=== PATIENT | male | born 1985 | race Caucasian/White ===

== ENCOUNTER 2018-10-28 11:23 | Emergency (ER) | payer SELFPAY ==
--- NOTE | 2018-10-28 11:39 | EKG12_ITS ---
Test Reason : Blood Pressure : / mmHG Vent. Rate : 055 BPM Atrial Rate : 192 BPM P-R Int : 000 ms QRS Dur : 156 ms QT Int : 414 ms P-R-T Axes : 269 050 041 degrees QTc Int : 396 ms Atrial flutter with variable A-V block with premature ventricular or aberrantly conducted complexes Right bundle branch block Inferior infarct , age undetermined Anterior injury pattern Abnormal ECG Confirmed by ROSE MARIE MAX, SITA ([id number]), field map editor MER GARAY ([id number]) on 10/29/2018 2:42:11 PM Referred By: Halima Doty Confirmed By:SITA TROTTER MD
--- NOTE | 2018-10-28 12:00 | CM.ED ---
SOCIAL WORK NOTE 11:52A- PT'S FATHER, TO DEPARTMENT AND ESCORTED TO PT'S ROOM. EMOTIONAL SUPPORT PROVIDED. THIS WORKER RESPONDED TO CODE BLUE AT 11:23A. NO FAMILY PRESENT AT THIS TIME.
[2018-10-28 12:01] LABS: Absolute Lymphocyte Count 4.92 X10^3/ul (0.83-4.51); Absolute Neutrophil Count 8.2 X10^3/uL (2.0-7.7); Basophil# 0.05 X10^3/uL; Basophil% 0.3 % (0-1); Eosinophil# 0.32 X10^3/uL; Eosinophils% 2.2 % (0-5); Hematocrit 48.8 % (40-54); Hemoglobin 14.8 g/dl (13.0-16.5); Lymphocyte # 4.92 X10^3/ul (4.0); Lymphocyte % 33.7 % (19-41); Mean Corp Hgb Conc 30.3 g/gl (32-36); Mean Corpuscular Volume 98.8 fL (80-94); Mean Platelet Vol. 9.9 fl (6.2-12.0); Monocyte# 1.06 X10^3/uL; Monocyte% 7.3 % (0-10); Neutrophil # 8.17 X10^3/uL (2.7-7.7); POSITIVE COUNT NO; POSITIVE DIFFERENTIAL NO; POSITIVE MORPHOLOGY NO; Platelet Count 126 K/mm3 (150-450); RBC Distribution Width CV 13.4 % (11.6-14.6); RBC Distribution Width SD 48.2 fl (35.1-43.9); Red Blood Count 4.94 M/mm3 (4.6-6.2); White Blood Count 14.6 K/mm3 (4.4-11.0)
[2018-10-28 12:03] LABS: International Normalized Ratio 1.5; Prothrombin Time (Protime)PT. 17.8 SECONDS (11.7-14.9)
[2018-10-28 12:19] LABS: ALB/GLOB Ratio 1.1 RATIO (0.9-2.4); AST(SGOT) 96 U/L (15-37); Alanine Aminotransfer ALT/SGPT 116 U/L (16-61); Albumin, Serum 2.3 g/dL (3.2-5.0); Alkaline Phosphatase 82 U/L (45-117); Anion Gap 16 (5-15); BUN 12 mg/dL (7-18); BUN/Creat Ratio 9.2 RATIO (10-20); Calcium,Total 6.2 mg/dL (8.5-10.1); Chloride 118 mmol/L (98-107); EST Glomerular Filtration Rate 68 mL/min (>60); Est Glom Filt Rate - Afr Amer 83 mL/min (>60); Globulin 2.1 g/dL (2.2-4.2); Glucose 250 mg/dL (74-106); Lactic Acid 11.9 mmol/L (0.4-2.0); Potassium 2.5 mmol/L (3.5-5.1); Protein, Total 4.4 g/dL (6.4-8.2); Sodium Level 156 mmol/L (136-145)
--- NOTE | 2018-10-28 13:20 | CM.ED ---
SOCIAL WORK NOTE THIS WORKER CONTINUED TO PROVIDE SUPPORT TO FAMILY AND FRIENDS IN TRAINING PROGRAM DEVELOPER WAITING AREA. ROXANNE RODRIGUES, DYE HOUSE SUPERVISOR, DRAFTER COMMERCIAL.
--- NOTE | 2018-10-28 13:25 | CM.ED ---
SOCIAL WORK NOTE DOCTOR'S UPDATED FAMILY. PT . MUCH EMOTIONAL SUPPORT PROVIDED. ROXANNE RODRIGUES, SUPERVISOR BRAKE REPAIR, VISITING TEACHER.
--- NOTE | 2018-10-28 14:03 | ED.RN ---
PT BROUGHT IN BY SERGEY LORENZO/ RESPIRATORY ARREST - CPR IN PROGRESS
--- NOTE | 2018-10-28 14:20 | CM.ED ---
SOCIAL WORK NOTE PT'S MOTHER GIVEN PT'S BELT.
--- NOTE | 2018-10-28 14:48 | CL.D_ITS ---
Patient Name: JAVIER CEDEÑO Study Date: 10/28/2018 Performing: Jayson Doty MD Ht: inches cm : 1985 Wt: lbs kg Age: 33 Gender: male BSA: PROCEDURE(S) PERFORMED [id number]/LHC/COR [id number] INTRAVENTRICULAR PACING [id number] PULMONARY ANGIOGRAM CLINICAL PROFILE AND INDICATIONS Indications: Cardiac Arrythmia, Suspected CAD, Resuscitated Cardiac Arrest Heart Failure: NYHA Class: 4, Newly Diagnosed: Yes, Heart Failure Type: Systolic Stress/Imaging Stress/Image Study Performed: No CAD Presentations: Other: acute shortness of breath; cardiopulmonary arrest. CONCLUSIONS Normal coronary arteries Pulmonary embolism Pulmonary filling defects Emergent left and right heart catheterization were performed with CPR in progress with mechanical CPR device in place. Patient required multiple shocks during the procedure, and was intubated in the ER . Initial attempts at transvenous pacing were successful with electrical capture, but no mechanical capture was noted. Emergent left heart catheterization demonstrated smooth coronary arteries and no coronary occlusive disease. Emergent right heart catheterization and right central pulmonary angiogr am demonstrated what appeared to be severe bilateral pulmonary emboli. Patient had emergent TPA deli ashley through the central tip of the [place] catheter. Repeat pulmonary angiogram demonstrated min imal if any improvement of vascular patency. Patient continued to require CPR throughout the entire case either mechanically or with physical personnel. The patient received multiple shocks throughout the entire case. Patient was coded for approximately 2 hours time, and multiple rounds of epinephrine, bicarb, calcium , and glucose were given. In addition the patient had wide open pressor agents delivered through a c entral venous catheter with no improvement. At the end of the procedure the patient had a coarse clover tricular fibrillation and the aerobic code efforts were terminated at the above time. RECOMMENDATIONS Patient's CPR and CODE BLUE were terminated at the above time. Patient will be transferred back to [facility] emergency room to be evaluated by the [facility] local biomedical specialist to determine if autopsy is ind icated. DESCRIPTION OF PROCEDURE The patient arrived to the procedure lab. The risks and benefits of the procedure as well as a full d escription of our services here and current unavailability of surgical backup were fully explained to the patient and/or their significant other prior to the catheterization. The Timeout was completed, verifying the correct patient and procedure. The patient's procedural site was prepped and draped in the usual fashion. . Using a modified Seldinger technique, arterial access was obtained via the right femoral artery, a 6Fr sheath was inserted. Venous access was obtained via the right femoral vein, a 7Fr sheath was inserted. Left Coronary Artery selective angiography was performed in multiple views u sing a 4 Fr. JL5 catheter. Right Coronary Artery selective angiography was then performed in multiple views using a 4 Fr. 3DRC catheter.Temporary Pacemaker was inserted into the right femoral vein and a dvanced to the RV apex, settings were placed at a rate of , 60 mA , demand mode, Other Findings: Attempted emergent temporary pacemaker with capture but no contractile pressure noted. CORONARY ANGIOGRAPHY DOMINANCE: Right Dominant LEFT HEART ASSESSMENT Left Ventricular Ejection Fraction: Not assessed Pulmonary Embolus, massive bilateral on pulmonary angiogram. Attempted emergent temporary pacemaker with capture but no contractile pressure noted. LEFT MAIN: Angiographically normal LEFT ANTERIOR DECENDING ARTERY: Angiographically normal CIRCUMFLEX ARTERY: Angiographically normal RIGHT CORONARY ARTERY: Angiographically normal COMPLICATIONS No Complications PROCEDURE MEDICATIONS Oxygen: 10 L/min via Ambu-bag Amiodarone 600 mg/min 10/28/2018 12:48:02 Amiodarone 33.3 mg/min @ 10/28/2018 12:57:02 Epinephrine 1mg/10ml infusing wide open 10/28/2018 13:08:08 Heparin 6000 unit(s) IV 10/28/2018 13:11:35 SUMMARY OF HEMODYNAMIC DATA Time AIR REST ECG 12:37:45 AO 56/12 (24) SA 12:48:48 AO 108/5 (33) 12:55:57 AO 35/0 (20) 13:15:13 AO 14/0 (13) 13:16:21 Signed By Jayson Doty MD On 10/28/2018 2:47:30 PM Jayson Doty MD
--- NOTE | 2018-10-28 14:54 | CM.ED ---
SOCIAL WORK NOTE FAMILY AND FRIENDS HAVE LEFT AT THIS TIME. NURSING UPDATED. ROXANNE RODRIGUES, WIRE BOUND BOX MACHINE HELPER, TRAILER MECHANIC.
--- NOTE | 2018-10-28 14:57 | PCM.CONS.C ---
Reason for Consult Date of Consultation: 10/28/18 Reason for Consultation: Cardiopulmonary arrest History of Present Illness: The patient is a 33 year old M who was brought in by EMS after he apparently passed out at home. Most of this history was obtained after his full evaluation and procedures performed. His initial EKG when he was found by EMS was actually a sinus tachycardia. He was markedly short of breath and then he became bradycardic and went into a cardiac arrest. CPR was initiated and I was called to the emergency room. At that time he was noted to be in atrial flutter with a slow ventricular response rate and a right bundle branch block patent. He was treated aggressively per ACLS protocol with intravenous epinephrine, appropriate CPR, temporary pacemaker transthoracic augmentation, intravenous amiodarone. He also had periods of ventricular fibrillation for which he needed to be defibrillated 3 times. He was noted to be in pulseless electrical activity for most of the period of the CPR. Consultation with the ER physician as well as the radio board operator was sought and the decision was made to bring him to the cardiac catheterization lab. There was a consideration as to whether this was an acute cardiac event versus a pulmonary embolus. The only history available at that time was that he had had a previous DVT which had not been worked up. (Later history obtained from his parents determined that he had been short of breath for a few days prior to this event) [] Past Medical History Surgical History: no surgical history - *Family History Maternal History Items: No pertinent history Paternal History Items: DVT Lives: Alone Smoking Status: Current some day smoker Alcohol: None Drugs: None Review of Systems - Review of Systems General: Denies: Fever, Night Sweats, Fatigue HEENT: Denies: Vision Change Cardiovascular: Reports: Syncope. Denies: Chest Discomfort, Shortness of Breath, Orthopnea, PND, Peripheral Edema, Palpitations, Lightheadedness, Dizziness, Near Syncope Respiratory: Denies: Cough, Sputum Production, Hemoptysis Gastrointestinal: Denies: Hematemesis, Hematochezia, Melena Genitourinary: Denies: Dysuria, Hematuria Muscoloskeletal: Denies: Myalgias Skin: Denies: Rash Neurological: Denies: Dizziness Psychiatric: Denies: Anxiety Endocrine: Denies: Unexplained Weight Loss Hematologic/ Lymphatic: Denies: Anemia Subjectve: Young man unconscious undergoing cardiopulmonary resuscitation General: - - Unconscious HEENT: PERRL, EOMI, Sclera Non Icteric Oral: Moist Mucosa Neck: Supple, Good ROM, No Lymph Node Enlargement Lungs: Clear to auscultation Cardiovascular: Normal S1, Normal S2, No Murmurs, No Rubs, No Gallops Vascular: No Carotid Bruits, Normal Femoral Pulses, Normal Radial Pulses, Normal Dorsalis Pedal Pulse, Normal Posterior Tibial Pulses Abdomen: Bowel Sounds Present, Soft, Non Tender, No HSM, No Organomegaly Extremities: No Cyanosis, No Clubbing, No edema Skin: No Rashes Lymphatic: No Lymph Node Enlargement Neurological: No Focal Motor or Sensory Deficit 10/28/18 11:45: WBC 14.6 H, RBC 4.94, Hgb 14.8, Hct 48.8, MCV 98.8 H, MCH 30.0, MCHC 30.3 L, RDW 13.4, RDW Differential 48.2 H, Plt Count 126 L, MPV 9.9, Immature Gran % (Auto) 0.500, Neut % (Auto) 56.0, Lymph % (Auto) 33.7, [place] % (Auto) 7.3, Eos % (Auto) 2.2, Baso % (Auto) 0.3, Absolute Neuts (auto) 8.2 H, Total Counted Not Reportable 10/28/18 11:45: PT 17.8 H, INR 1.5 10/28/18 11:45: Sodium 156 H, Potassium 2.5 L*, Chloride 118 H, Carbon Dioxide 22.0, Anion Gap 16 H, BUN 12, Creatinine 1.30, Est GFR (MDRD) Af Amer 83, Est GFR (MDRD) Non-Af 68, BUN/Creatinine Ratio 9.2 L, Glucose 250 H, Calcium 6.2 L*, Total Bilirubin 0.80, Troponin I 0.125 H 10/28/18 11:45: Lactic Acid 11.9 H* Rhythm: EKG: Initial EKG demonstrated sinus tachycardia with a rate of 141 bpm: Follow-up EKG demonstrated atrial flutter with a right bundle branch block and a rate of 55-60 bpm ECHO: Stress Test: Cardiac Cath: PCI: CT Surgery: Holter monitor: EPS: PPM: CXR: Chest CT Scan: Assessment/Plan 1. Cardiopulmonary arrest-massive pulmonary embolism versus acute coronary syndrome The etiology of the time that he was seen was not clear. The considerations were an acute coronary syndrome involving the right coronary artery or a massive pulmonary embolism. Due to the fact that it was felt that he should go to the catheterization lab it was felt that we should hold off on giving him tissue plasminogen activator. This could be administered to him in the catheterization lab. Aggressive CPR measures were continued in the emergency room and also in the catheterization lab including but not limited to multiple rounds of epinephrine , amiodarone, sodium bicarbonate, and multiple liters of intravenous fluid. The patient was taken emergently to the cardiac catheterization lab. The results of the cardiac catheterization and procedures are dictated under separate cover. Emergency consent was obtained verbally from parents and an emergent cardiac catheterization procedure was anticipated and performed. Thank you for allowing me to participate in the care of your patient. Please don't hesitate to call if any issues arise
--- NOTE | 2018-10-28 15:01 | CON.PCM_ITS ---
Reason for Consult Date of Consultation: 10/28/18 Reason for Consultation: Cardiopulmonary arrest History of Present Illness: The patient is a 33 year old M who was brought in by EMS after he apparently passed out at home. Most of this history was obtained after his full evaluation and procedures performed. His initial EKG when he was found by EMS was actually a sinus tachycardia. He was markedly short of breath and then he became bradycardic and went into a cardiac arrest. CPR was initiated and I was called to the emergency room. At that time he was noted to be in atrial flutter with a slow ventricular response rate and a right bundle branch block patent. He was treated aggressively per ACLS protocol with intravenous epinephrine, appropriate CPR, temporary pacemaker transthoracic augmentation, intravenous amiodarone. He also had periods of ventricular fibrillation for which he needed to be defibrillated 3 times. He was noted to be in pulseless electrical activity for most of the period of the CPR. Consultation with the ER physician as well as the soc analyst was sought and the decision was made to bring him to the cardiac catheterization lab. There was a consideration as to whether this was an acute cardiac event versus a pulmonary embolus. The only history available at that time was that he had had a previous DVT which had not been worked up. (Later history obtained from his parents determined that he had been short of breath for a few days prior to this event) [] Past Medical History Surgical History: no surgical history - *Family History Maternal History Items: No pertinent history Paternal History Items: DVT Lives: Alone Smoking Status: Current some day smoker Alcohol: None Drugs: None Review of Systems - Review of Systems General: Denies: Fever, Night Sweats, Fatigue HEENT: Denies: Vision Change Cardiovascular: Reports: Syncope. Denies: Chest Discomfort, Shortness of Breath, Orthopnea, PND, Peripheral Edema, Palpitations, Lightheadedness, Dizziness, Near Syncope Respiratory: Denies: Cough, Sputum Production, Hemoptysis Gastrointestinal: Denies: Hematemesis, Hematochezia, Melena Genitourinary: Denies: Dysuria, Hematuria Muscoloskeletal: Denies: Myalgias Skin: Denies: Rash Neurological: Denies: Dizziness Psychiatric: Denies: Anxiety Endocrine: Denies: Unexplained Weight Loss Hematologic/ Lymphatic: Denies: Anemia Subjectve: Young man unconscious undergoing cardiopulmonary resuscitation General: - - Unconscious HEENT: PERRL, EOMI, Sclera Non Icteric Oral: Moist Mucosa Neck: Supple, Good ROM, No Lymph Node Enlargement Lungs: Clear to auscultation Cardiovascular: Normal S1, Normal S2, No Murmurs, No Rubs, No Gallops Vascular: No Carotid Bruits, Normal Femoral Pulses, Normal Radial Pulses, Normal Dorsalis Pedal Pulse, Normal Posterior Tibial Pulses Abdomen: Bowel Sounds Present, Soft, Non Tender, No HSM, No Organomegaly Extremities: No Cyanosis, No Clubbing, No edema Skin: No Rashes Lymphatic: No Lymph Node Enlargement Neurological: No Focal Motor or Sensory Deficit 10/28/18 11:45: WBC 14.6 H, RBC 4.94, Hgb 14.8, Hct 48.8, MCV 98.8 H, MCH 30.0, MCHC 30.3 L, RDW 13.4, RDW Differential 48.2 H, Plt Count 126 L, MPV 9.9, Immature Gran % (Auto) 0.500, Neut % (Auto) 56.0, Lymph % (Auto) 33.7, [place] % (Auto) 7.3, Eos % (Auto) 2.2, Baso % (Auto) 0.3, Absolute Neuts (auto) 8.2 H, Total Counted Not Reportable 10/28/18 11:45: PT 17.8 H, INR 1.5 10/28/18 11:45: Sodium 156 H, Potassium 2.5 L*, Chloride 118 H, Carbon Dioxide 22.0, Anion Gap 16 H, BUN 12, Creatinine 1.30, Est GFR (MDRD) Af Amer 83, Est GFR (MDRD) Non-Af 68, BUN/Creatinine Ratio 9.2 L, Glucose 250 H, Calcium 6.2 L*, Total Bilirubin 0.80, Troponin I 0.125 H 10/28/18 11:45: Lactic Acid 11.9 H* Rhythm: EKG: Initial EKG demonstrated sinus tachycardia with a rate of 141 bpm: Follow- up EKG demonstrated atrial flutter with a right bundle branch block and a rate of 55-60 bpm ECHO: Stress Test: Cardiac Cath: PCI: CT Surgery: Holter monitor: EPS: PPM: CXR: Chest CT Scan: Assessment/Plan 1. Cardiopulmonary arrest-massive pulmonary embolism versus acute coronary syndrome * The etiology of the time that he was seen was not clear. The considerations were an acute coronary syndrome involving the right coronary artery or a massive pulmonary embolism. Due to the fact that it was felt that he should go to the catheterization lab it was felt that we should hold off on giving him tissue plasminogen activator. This could be administered to him in the catheterization lab. Aggressive CPR measures were continued in the emergency room and also in the catheterization lab including but not limited to multiple rounds of epinephrine , amiodarone, sodium bicarbonate, and multiple liters of intravenous fluid. * The patient was taken emergently to the cardiac catheterization lab. * The results of the cardiac catheterization and procedures are dictated under separate cover. * Emergency consent was obtained verbally from parents and an emergent cardiac catheterization procedure was anticipated and performed. * * Thank you for allowing me to participate in the care of your patient. Please don't hesitate to call if any issues arise
--- NOTE | 2018-10-28 15:38 | ED.RN ---
PATIENT TO THE [facility] AT THIS TIME
[2018-10-28 15:58] LABS: Reflex Lactate? N
--- NOTE | 2018-10-28 16:48 | ED.VISSUMM ---
- ER Visit Summary Date of Service: 10/28/18 Chief Complaint: Full cardiopulmonary arrest History of Present Illness: The patient is a 33 M initially we had no history available because it was not family available. When his dad arrived he has had a history of a DVT in the past. Was taken off of blood thinners. He has no cardiac history and no history of drug abuse other than occasional use of marijuana. Patient called the squad today due to shortness of breath. On their arrival the patient was awake and talking. He was short of breath. His heart rate was in the 140s and was hypotensive. Squad I believe they tell me his initial blood pressure for them prior to entering the ER was 92/56. Paramedics gave him a dose of Narcan in case this was a opiate overdose which does not appear to be after further history. As there are none the patient on the squad bring him in the ER he went to full cardiopulmonary arrest. The paramedics that his eyes get very dilated he cleansed stopped posture and then went out. I was called immediately to room 9. On my arrival in the room the patient was in full cardiopulmonary arrest. Physical Examination: Tube successful in the first attempt with bilateral breath sounds a good vapor change. CPR was started immediately. Patient was given multiple rounds of epinephrine and a total of atropine IV x3 due to intermittent episodes of bradycardia without pulses. Patient went through many dysrhythmias including V. fib for which he was defibrillated at least 3 times. He also had episodes of bradycardia which was treated with atropine and epinephrine. And times of pulseless electrical activity. Pupils were dilated at 5+ millimeters bilaterally. Nonreactive. Moist mucous membranes. Neck no signs of trauma. Trachea midline. No carotid pulses except with CPR. Lungs clear to auscultation bilaterally with bagging. No audible cardiac tones. Abdomen is soft. Nondistended. Flat. Extremities he is not moving his extremities. They are still warm to the touch. No radial or femoral pulses except with CPR. Test Results: CBC showed a white count of 14,600. Hemoglobin of 14. Electrolytes show sodium 156. Potassium of 2.5. Anion gap is 16. Troponin 0 0.125. Lactic acid elevated 11.9. EKG after the patient had been in cardiopulmonary arrest for at least 20 minutes if not longer. Showed atrial flutter with both anterior and inferior ST elevation consistent with an MT however this may be post resuscitation I do not necessarily feel this was his acute presenting event. Chest x-ray was ordered but never done due to the severity of the patient and continued CPR Emergency Department Course and Treatment: Had extensive CPR performed. ET intubation by myself. He was given at least 7 dosages of IV epinephrine. He was given 3 doses of atropine IV due to bradycardia. He was given dopamine drip to try to increase his heart rate and blood pressure which is very unsuccessful. He was also given amiodarone bolus due to his episodes of V. fib for which he was defibrillated. Patient was given bicarb several times due to suspected metabolic acidosis from his full arrest. Treatment Plan: Dr. Lopez was consulted and was assisting me in the patient's resuscitation. They felt the patient should be taken to the [facility] for possible dysrhythmia and/or pacemaker placement. Also to rule out any type of coronary obstruction and to help potentially diagnose him for a saddle pulmonary emboli. We did not push TPA because we do not have any definitive diagnosis. His EKG that showed ST elevation of looked like anterior inferior MT was after approximately 25 minutes of cardiopulmonary resuscitation. I did not feel that was the initial event. Patient was taken to cardiac catheterization lab. Those details can be filled in by the rug sizer report. As I was told he did have a very large saddle pulmonary emboli. They attempted to resolve it with TPA and were unsuccessful. Eventually the patient's code was called and he was pronounced. His family was in the hospital and cardiology and social worker health services talk to them. I had previously gotten some history from them and filled them in on his acuity of illness. Disposition: Pronounced and sent to the [facility]. Impression: Acute cardiopulmonary arrest Dysrhythmias including PEA, bradycardia and V. fib arrest Intubated by ER Later determined to have a massive saddle pulmonary emboli diagnosed by cardiac catheterization This note was generated with [employer] dictation software. It may contain incorrect words, spelling, and punctuation that were not noted in review of the chart prior to signing ED Disposition - Plan for ED Patient: Disposition: Referrals: Care Physician,No Primary [Primary Care Provider] -
--- NOTE | 2018-10-28 16:55 | ED.DCSUM_ITS ---
- ER Visit Summary Date of Service: 10/28/18 Chief Complaint: Full cardiopulmonary arrest History of Present Illness: The patient is a 33 M initially we had no history available because it was not family available. When his dad arrived he has had a history of a DVT in the past. Was taken off of blood thinners. He has no cardiac history and no history of drug abuse other than occasional use of marijuana. Patient called the squad today due to shortness of breath. On their arrival the patient was awake and talking. He was short of breath. His heart rate was in the 140s and was hypotensive. Squad I believe they tell me his initial blood pressure for them prior to entering the ER was 92/56. Paramedics gave him a dose of Narcan in case this was a opiate overdose which does not appear to be after further history. As there are none the patient on the squad bring him in the ER he went to full cardiopulmonary arrest. The paramedics that his eyes get very dilated he cleansed stopped posture and then went out. I was called immediately to room 9. On my arrival in the room the patient was in full cardiopulmonary arrest. Physical Examination: Tube successful in the first attempt with bilateral breath sounds a good vapor change. CPR was started immediately. Patient was given multiple rounds of epinephrine and a total of atropine IV x3 due to intermittent episodes of bradycardia without pulses. Patient went through many dysrhythmias including V. fib for which he was defibrillated at least 3 times. He also had episodes of bradycardia which was treated with atropine and epinephrine. And times of pulseless electrical activity. Pupils were dilated at 5+ millimeters bilaterally. Nonreactive. Moist mucous membranes. Neck no signs of trauma. Trachea midline. No carotid pulses except with CPR. Lungs clear to auscultation bilaterally with bagging. No audible cardiac tones. Abdomen is soft. Nondistended. Flat. Extremities he is not moving his extremities. They are still warm to the touch. No radial or femoral pulses except with CPR. Test Results: CBC showed a white count of 14,600. Hemoglobin of 14. Electrolytes show sodium 156. Potassium of 2.5. Anion gap is 16. Troponin 0 0.125. Lactic acid elevated 11.9. EKG after the patient had been in cardiopulmonary arrest for at least 20 minutes if not longer. Showed atrial flutter with both anterior and inferior ST elevation consistent with an AZ however this may be post resuscitation I do not necessarily feel this was his acute presenting event. Chest x-ray was ordered but never done due to the severity of the patient and continued CPR Emergency Department Course and Treatment: Had extensive CPR performed. ET intubation by myself. He was given at least 7 dosages of IV epinephrine. He was given 3 doses of atropine IV due to bradycardia. He was given dopamine drip to try to increase his heart rate and blood pressure which is very unsuccessful. He was also given amiodarone bolus due to his episodes of V. fib for which he was defibrillated. Patient was given bicarb several times due to suspected metabolic acidosis from his full arrest. Treatment Plan: Dr. Lopez was consulted and was assisting me in the patient's resuscitation. They felt the patient should be taken to the [facility] for possible dysrhythmia and/or pacemaker placement. Also to rule out any type of coronary obstruction and to help potentially diagnose him for a saddle pulmonary emboli. We did not push TPA because we do not have any definitive diagnosis. His EKG that showed ST elevation of looked like anterior inferior AZ was after approximately 25 minutes of cardiopulmonary resuscitation. I did not feel that was the initial event. Patient was taken to cardiac catheterization lab. Those details can be filled in by the [facility] report. As I was told he did have a very large saddle pulmonary emboli. They attempted to resolve it with TPA and were unsuccessful. Eventually the patient's code was called and he was pronounced. His family was in the hospital and cardiology and psych social worker talk to them. I had previously gotten some history from them and filled them in on his acuity of illness. Disposition: Pronounced and sent to the [facility] [place]. Impression: Acute cardiopulmonary arrest Dysrhythmias including PEA, bradycardia and V. fib arrest Intubated by ER Later determined to have a massive saddle pulmonary emboli diagnosed by cardiac catheterization This note was generated with [employer] dictation software. It may contain incorrect words, spelling, and punctuation that were not noted in review of the chart prior to signing ED Disposition - Plan for ED Patient: Disposition: Referrals: Care Physician,No Primary [Primary Care Provider] -
== END 2018-10-28 15:39 ==
PROVIDERS: Emergency Provider Emergency Medicine; Referring Provider Radiology Diagnostic Radiology
DX: I46.9 Cardiac arrest, cause unspecified (principal); I26.92 Saddle embolus of pulmonary artery without acute cor pulmonale; I49.01 Ventricular fibrillation; I45.10 Unspecified right bundle-branch block; F17.200 Nicotine dependence, unspecified, uncomplicated; Z86.718 Personal history of other venous thrombosis and embolism
CPT/HCPCS: 31500; 33210; 36013; 80053; 83605; 84484; 85025; 85610; 92950; 93005; 93456; J2997; J7050; A4216; C1751; C1769; C1894; Q9967